=== PATIENT | female | born 1935 | race Caucasian/White ===

== ENCOUNTER 2024-07-16 13:55 | Inpatient (IN) | payer MEDICARE ==
[~2024-07-16] VITALS: Ht 157.5 cm; Wt 61.2 kg
[~2024-07-16 13:55] MED LIST: ESCI5TAB16 PO; METO-396 PO; SIMV-46 PO
[2024-07-16] MEDS ORDERED: DILTIAZEM HCL 125 MG in DEXT 5% WATER 100 ML IV ONE (14:15)
[2024-07-16] MEDS: DILTIAZEM HCL 5MG/ML 5ML VIAL IV PRN (14:21)
[2024-07-16 14:41] LABS: HEMATOCRIT. 36.3 % (36.0-48.0); HEMOGLOBIN. 11.2 g/dL (12.0-16.0); MEAN CORPUSCULAR HEMOGLOBIN 28.6 pg (28.0-32.0); MEAN CORPUSCULAR VOLUME 92.4 fL (81.0-99.0); MEAN PLATELET VOLUME 11.1 fl (7.4-10.4); PLATELET 142 x1000/uL (130-400); RED BLOOD CELL COUNT 3.93 mill/uL (4.2-5.4); RED CELL DISTRIBUTION WIDTH 16.3 % (11.6-14.6); WHITE BLOOD COUNT 6.6 x1000/uL (4.5-11.0)
[2024-07-16 14:43] LABS: DIFFERENTIAL COMMENT 1
[2024-07-16 14:47] LABS: CHLORIDE 98 mEq/L (98-107); POTASSIUM 4.9 mEq/L (3.5-5.1); SODIUM 127 mEq/L (136-145)
[2024-07-16 14:48] LABS: CARBON DIOXIDE 20 mEq/L (21-32)
[2024-07-16 14:49] LABS: CALCIUM 9.4 mg/dL (8.7-10.4)
[2024-07-16 14:50] LABS: INR 1.3
[2024-07-16 14:53] LABS: CREATININE 0.8 mg/dL (0.6-1.0); GLUCOSE 122 mg/dL (70-105); UREA NITROGEN BLOOD 13 mg/dL (9-23)
[2024-07-16 14:54] LABS: TROPONIN I HIGH SENSITIVITY 8 ng/L (3.0-34)
[2024-07-16 15:26] LABS: ANISOCYTOSIS 1+; PLATELET ESTIMATE NORMAL
[2024-07-16] MEDS: DILTIAZEM HCL 125 MG in DEXT 5% WATER 100 ML IV ONE (15:54)
[2024-07-16 19:15] LABS: TROPONIN I HIGH SENSITIVITY 8 ng/L (3.0-34)
[2024-07-16 23:00] VITALS: BP 119/82; PULSE 93; RESP 20; TEMP 36.3068
[2024-07-16] MEDS ORDERED: NALOXONE HCL 0.4MG/ML VIAL IV PRN (23:45)
[2024-07-17] VITALS (12 sets, daily range): BP systolic 98–142; BP diastolic 71–124; PULSE 88–121; RESP 11–35; TEMP 36.22512–36.61404; O2SAT 95–98
[2024-07-17] MEDS: DILTIAZEM HCL 60MG TABLET PO NR (00:35)
[2024-07-17] MEDS: DEXT 5%/0.45% NACL 1000ML 1,000 ML IV SCH (00:35)
[2024-07-17] MEDS: DILTIAZEM HCL 60MG TABLET PO SCH (05:07)
[2024-07-17] MEDS: ENOXAPARIN 80MG/0.8ML SYR SUBCUT SCH (05:34)
[2024-07-17] MEDS: PANTOPRAZOLE 40MG DR TABLET PO SCH (07:55)
[2024-07-17] MEDS: DIGOXIN 500MCG/2ML AMP IV NR (15:03)
[2024-07-17] MEDS: SODIUM CHLORIDE 0.45% 250 ML IV ONE (15:04)
[2024-07-17] MEDS: REGADENOSON 0.4 MG/5 ML IV NR (15:15)
[2024-07-17] MEDS: DILTIAZEM HCL 90MG TABLET PO SCH (17:32)
[2024-07-17 17:39] LABS: HEMOGLOBIN 11.1 g/dL (12.0-16.0); MEAN CORPUSCULAR HEMOGLOBIN 29.2 pg (28.0-32.0); MEAN CORPUSCULAR HGB CONC 32.6 g/dL (31.0-37.0); MEAN CORPUSCULAR VOLUME 89.5 fL (81.0-99.0); PLATELET 161 x1000/uL (130-400); RED CELL DISTRIBUTION WIDTH 16.3 % (11.6-14.6); WHITE BLOOD COUNT 8.5 x1000/uL (4.5-11.0)
[2024-07-17 17:52] LABS: CHLORIDE 98 mEq/L (98-107); POTASSIUM 3.7 mEq/L (3.5-5.1); SODIUM 130 mEq/L (136-145)
[2024-07-17 17:53] LABS: CALCIUM 9.5 mg/dL (8.7-10.4); CARBON DIOXIDE 28 mEq/L (21-32)
[2024-07-17 17:58] LABS: CREATININE 0.8 mg/dL (0.6-1.0); GLUCOSE 132 mg/dL (70-105); TRIGLYCERIDE 70 mg/dL (0-150); UREA NITROGEN BLOOD 10 mg/dL (9-23)
[2024-07-17 17:59] LABS: LDL CHOLESTEROL 39 mg/dL (5-100)
[2024-07-17 18:00] LABS: CHOLESTEROL 68 mg/dL (<200); HDL CHOLESTEROL < 20 mg/dL (>65)
[2024-07-17 18:03] LABS: THYROID STIMULATING HORMONE 0.86 uIU/mL (0.55-4.78)
[2024-07-18] VITALS (12 sets, daily range): BP systolic 121–169; BP diastolic 77–113; PULSE 90–131; RESP 12–26; TEMP 36.44736–37.05852; O2SAT 94–97
[2024-07-18] MEDS: DILTIAZEM HCL 5MG/ML 5ML VIAL IV PRN (02:57)
[2024-07-18] MEDS: MORPHINE SULFATE 2 MG/ML INJ (NOT FOR IM USE) IV PRN (03:43)
[2024-07-18] MEDS ORDERED: CAFFEINE CITRATE 20MG/ML 3ML VIAL IV ONE (08:41)
[2024-07-18] MEDS: DIGOXIN 500MCG/2ML AMP IV NR (12:37)
[2024-07-18] MEDS: SODIUM CHLORIDE 0.9% 1000ML BAG (SEPSIS BOLUS) IV NR (12:38)
[2024-07-18] MEDS ORDERED: AMIODARONE HCL 50MG/ML 3ML VIAL IV ONE (13:45)
[2024-07-18] MEDS: AMIODARONE 150MG/100ML 100 ML IV NR (15:42)
[2024-07-18 16:32] LABS: HEMATOCRIT. 38.8 % (36.0-48.0); HEMOGLOBIN. 12.6 g/dL (12.0-16.0); MEAN CORPUSCULAR HGB CONC 32.5 g/dL (31.0-37.0); MEAN PLATELET VOLUME 9.9 fl (7.4-10.4); PLATELET 160 x1000/uL (130-400); RED BLOOD CELL COUNT 4.36 mill/uL (4.2-5.4); RED CELL DISTRIBUTION WIDTH 16.1 % (11.6-14.6); WHITE BLOOD COUNT 9.6 x1000/uL (4.5-11.0)
[2024-07-18 16:38] LABS: DIFFERENTIAL COMMENT 1
[2024-07-18 16:41] LABS: CARBON DIOXIDE 29 mEq/L (21-32); CHLORIDE 96 mEq/L (98-107); POTASSIUM 3.3 mEq/L (3.5-5.1); SODIUM 131 mEq/L (136-145)
[2024-07-18 16:43] LABS: CALCIUM 9.6 mg/dL (8.7-10.4)
[2024-07-18 16:47] LABS: CREATININE 0.7 mg/dL (0.6-1.0); GLUCOSE 121 mg/dL (70-105)
[2024-07-18 16:50] LABS: UREA NITROGEN BLOOD < 5 mg/dL (9-23)
[2024-07-18] MEDS: DILTIAZEM HCL 30MG TABLET PO SCH (17:32)
[2024-07-18] MEDS: DIGOXIN 500MCG/2ML AMP IV SCH (17:32)
[2024-07-18] MEDS: AMIODARONE HCL 900 MG in DEXT 5% WATER 482 ML IV SCH (17:43)
[2024-07-18 19:19] LABS: PLATELET ESTIMATE NORMAL
[2024-07-18] MEDS: POTASSIUM CHLORIDE 20MEQ TABLET SR PO NR (20:49)
[2024-07-19] VITALS (13 sets, daily range): BP systolic 126–161; BP diastolic 70–115; PULSE 95–129; RESP 12–32; TEMP 36.114–37.05852; O2SAT 95–98
[2024-07-19] MEDS: KCL 20MEQ/100ML PREMIX 100 ML IV NR (01:59)
[2024-07-19 05:54] LABS: CALCIUM 9.3 mg/dL (8.7-10.4); CHLORIDE 95 mEq/L (98-107); POTASSIUM 3.3 mEq/L (3.5-5.1); SODIUM 130 mEq/L (136-145)
[2024-07-19 05:55] LABS: CARBON DIOXIDE 30 mEq/L (21-32)
[2024-07-19 06:00] LABS: CREATININE 0.7 mg/dL (0.6-1.0); GLUCOSE 115 mg/dL (70-105)
[2024-07-19 06:13] LABS: UREA NITROGEN BLOOD < 5 mg/dL (9-23)
[2024-07-19 06:18] LABS: HEMATOCRIT. 38.8 % (36.0-48.0); HEMOGLOBIN. 12.5 g/dL (12.0-16.0); MEAN CORPUSCULAR HEMOGLOBIN 28.2 pg (28.0-32.0); MEAN CORPUSCULAR HGB CONC 32.2 g/dL (31.0-37.0); MEAN CORPUSCULAR VOLUME 87.5 fL (81.0-99.0); MEAN PLATELET VOLUME 9.4 fl (7.4-10.4); PLATELET 172 x1000/uL (130-400); RED BLOOD CELL COUNT 4.44 mill/uL (4.2-5.4); RED CELL DISTRIBUTION WIDTH 16.4 % (11.6-14.6); WHITE BLOOD COUNT 10.7 x1000/uL (4.5-11.0)
[2024-07-19 06:37] LABS: DIFFERENTIAL COMMENT 1
[2024-07-19] MEDS ORDERED: POLYMYXIN B SULFATE 500000 UNITS/VIAL ONE (08:10)
[2024-07-19] MEDS ORDERED: LIDOCAINE HCL/EPINEPHRINE 1%-EPI 1:100,000 20ML VIAL ONE (08:11)
[2024-07-19] MEDS ORDERED: BACITRACIN 14GM TUBE TOP ONE (08:11)
[2024-07-19] MEDS ORDERED: BUPIVACAINE HCL/PF 0.5% (5MG/ML) 10ML ONE (08:11)
[2024-07-19] MEDS ORDERED: ETOMIDATE 2MG/ML 10ML VIAL IV ONE (11:32)
[2024-07-19] MEDS ORDERED: DEXAMETHASONE 4MG/ML 1ML VIAL ONE (11:32)
[2024-07-19] MEDS ORDERED: SUCCINYLCHOLINE CHLORIDE 200MG/10ML IV ONE (11:32)
[2024-07-19] MEDS ORDERED: FENTANYL CITRATE/PF 50MCG/ML 5ML VIAL ONE (11:33)
[2024-07-19] MEDS ORDERED: MIDAZOLAM HCL 2 MG/2 ML VIAL ONE (11:34)
[2024-07-19] MEDS ORDERED: VERAPAMIL HCL 2.5 MG/1 ML 2ML VIAL IV ONE (11:50)
[2024-07-19] MEDS ORDERED: HYDROCODONE/ACETAMINOPHEN 5/325MG TABLET PO PRN ×2 (12:00)
[2024-07-19] MEDS ORDERED: HYDROMORPHONE HCL/PF 2MG/ML INJ IV PRN (12:00)
[2024-07-19] MEDS ORDERED: ONDANSETRON HCL 4MG/2ML INJ IV PRN (12:00)
[2024-07-19] MEDS ORDERED: CEFAZOLIN 1000MG PREMIX 50 ML IV SCH (12:00)
[2024-07-19] MEDS: SODIUM CHLORIDE 0.45% 250 ML IV ONE (12:35)
[2024-07-19] MEDS: DIGOXIN 500MCG/2ML AMP IV SCH (12:46)
[2024-07-19] MEDS: DILTIAZEM HCL 30MG TABLET PO SCH (15:06)
[2024-07-19] MEDS: KCL 20MEQ/100ML PREMIX 100 ML IV SCH (18:38)
[2024-07-19 22:04] LABS: PLATELET ESTIMATE NORMAL
[2024-07-20] VITALS (12 sets, daily range): BP systolic 107–168; BP diastolic 69–128; PULSE 88–120; RESP 14–29; TEMP 36.114–36.78072; O2SAT 96–99
[2024-07-20 06:10] LABS: CALCIUM 9.5 mg/dL (8.7-10.4); CARBON DIOXIDE 30 mEq/L (21-32); CHLORIDE 95 mEq/L (98-107); POTASSIUM 3.9 mEq/L (3.5-5.1); SODIUM 129 mEq/L (136-145)
[2024-07-20 06:15] LABS: CREATININE 0.6 mg/dL (0.6-1.0)
[2024-07-20 06:16] LABS: GLUCOSE 126 mg/dL (70-105); UREA NITROGEN BLOOD 5 mg/dL (9-23)
[2024-07-20 06:18] LABS: DIGOXIN 0.9 ng/mL (0.8-2.0)
[2024-07-20 06:33] LABS: HEMATOCRIT 39.8 % (36.0-48.0); HEMOGLOBIN 12.3 g/dL (12.0-16.0); MEAN CORPUSCULAR HEMOGLOBIN 27.5 pg (28.0-32.0); MEAN CORPUSCULAR HGB CONC 30.9 g/dL (31.0-37.0); MEAN CORPUSCULAR VOLUME 88.9 fL (81.0-99.0); PLATELET 162 x1000/uL (130-400); RED BLOOD CELL COUNT 4.48 mill/uL (4.2-5.4); WHITE BLOOD COUNT 13.3 x1000/uL (4.5-11.0)
[2024-07-20] MEDS ORDERED: ENOXAPARIN 40MG/0.4ML SYR SUBCUT SCH (09:00)
[2024-07-20] MEDS: VANCOMYCIN 1.25GM/250ML 250 ML IV SCH (10:45)
[2024-07-20] MEDS: PIPERACILLIN/TAZO 3.375G/50ML 50 ML IV SCH (10:45)
[2024-07-20] MEDS: DIGOXIN 500MCG/2ML AMP IV NR (10:47)
[2024-07-20] MEDS: DIGOXIN 500MCG/2ML AMP IV SCH (18:30)
[2024-07-20 23:05] LABS: CLARITY URINE CLOUDY (CLEAR); COLOR URINE YELLOW (YELLOW); GLUCOSE URINE NEGATIVE (NEGATIVE); KETONES URINE NEGATIVE (NEGATIVE); LEUKOCYTE ESTERASE URINE 3+ (NEGATIVE); NITRITE URINE POSITIVE (NEGATIVE); OCCULT BLOOD URINE 1+ (NEGATIVE); PH URINE 8.5 (4.5-8.0); PROTEIN URINE 1+ (NEGATIVE); SPECIFIC GRAVITY URINE 1.013 (1.005-1.030)
[2024-07-20 23:29] LABS: BACTERIA URINE 3+; SQUAMOUS EPITHELIAL CELL URINE 1+ /lpf (RARE/1+)
[2024-07-20 23:30] LABS: WBC URINE TNTC /hpf (0-2)
[2024-07-21] VITALS (12 sets, daily range): BP systolic 123–152; BP diastolic 64–102; PULSE 74–110; RESP 14–26; TEMP 36.00288–37.28076; O2SAT 92–98
[2024-07-21] MEDS: DILTIAZEM HCL 90MG TABLET PO SCH (00:06)
[2024-07-21 07:17] LABS: HEMATOCRIT 37.1 % (36.0-48.0); HEMOGLOBIN 11.7 g/dL (12.0-16.0); MEAN CORPUSCULAR HEMOGLOBIN 27.7 pg (28.0-32.0); MEAN CORPUSCULAR HGB CONC 31.6 g/dL (31.0-37.0); MEAN CORPUSCULAR VOLUME 87.8 fL (81.0-99.0); PLATELET 151 x1000/uL (130-400); RED BLOOD CELL COUNT 4.22 mill/uL (4.2-5.4); WHITE BLOOD COUNT 16.2 x1000/uL (4.5-11.0)
[2024-07-21 07:22] LABS: CHLORIDE 92 mEq/L (98-107); POTASSIUM 3.3 mEq/L (3.5-5.1); SODIUM 126 mEq/L (136-145)
[2024-07-21 07:23] LABS: CARBON DIOXIDE 29 mEq/L (21-32)
[2024-07-21 07:24] LABS: CALCIUM 9.4 mg/dL (8.7-10.4)
[2024-07-21 07:28] LABS: CREATININE 0.5 mg/dL (0.6-1.0); GLUCOSE 124 mg/dL (70-105)
[2024-07-21 07:38] LABS: UREA NITROGEN BLOOD < 5 mg/dL (9-23)
[2024-07-21] MEDS ORDERED: VANCOMYCIN HCL 1GM VIAL ONE (08:20)
[2024-07-21] MEDS ORDERED: LIDOCAINE HCL/EPINEPHRINE 1%-EPI 1:100,000 20ML VIAL ONE (08:20)
[2024-07-21] MEDS ORDERED: POLYMYXIN B SULFATE 500000 UNITS/VIAL ONE (08:20)
[2024-07-21] MEDS ORDERED: BACITRACIN 14GM TUBE TOP ONE (08:20)
[2024-07-21] MEDS: VANCOMYCIN 750MG/150ML (BAXTER) IV SCH (08:52)
[2024-07-21] MEDS ORDERED: SODIUM CHLORIDE 3% 500ML IV SOLN IV ONE (15:45)
[2024-07-21 19:00] LABS: CHLORIDE 93 mEq/L (98-107); POTASSIUM 3.4 mEq/L (3.5-5.1); SODIUM 126 mEq/L (136-145)
[2024-07-21 19:01] LABS: CARBON DIOXIDE 30 mEq/L (21-32)
[2024-07-21 19:02] LABS: CALCIUM 9.9 mg/dL (8.7-10.4)
[2024-07-21 19:06] LABS: CREATININE 0.6 mg/dL (0.6-1.0); GLUCOSE 124 mg/dL (70-105); UREA NITROGEN BLOOD 5 mg/dL (9-23)
[2024-07-21 19:11] LABS: T4 FREE 1.62 ng/dL (0.89-1.76); THYROID STIMULATING HORMONE 1.27 uIU/mL (0.55-4.78)
[2024-07-21] MEDS: SODIUM CHLORIDE 3% 250 ML IV NR (19:11)
[2024-07-21] MEDS: KCL 10MEQ/50ML PREMIX 50 ML IV ONE (22:30)
[2024-07-22] VITALS (13 sets, daily range): BP systolic 102–162; BP diastolic 62–104; PULSE 65–98; RESP 17–33; TEMP 36.33624–36.78072; O2SAT 89–100
[2024-07-22 06:58] LABS: CARBON DIOXIDE 27 mEq/L (21-32); CHLORIDE 96 mEq/L (98-107); POTASSIUM 3.4 mEq/L (3.5-5.1); SODIUM 129 mEq/L (136-145)
[2024-07-22 06:59] LABS: CALCIUM 9.7 mg/dL (8.7-10.4)
[2024-07-22 07:03] LABS: CREATININE 0.6 mg/dL (0.6-1.0)
[2024-07-22 07:04] LABS: GLUCOSE 124 mg/dL (70-105); UREA NITROGEN BLOOD 6 mg/dL (9-23)
[2024-07-22 07:25] LABS: HEMATOCRIT 40.9 % (36.0-48.0); HEMOGLOBIN 12.8 g/dL (12.0-16.0); MEAN CORPUSCULAR HEMOGLOBIN 27.6 pg (28.0-32.0); MEAN CORPUSCULAR HGB CONC 31.3 g/dL (31.0-37.0); MEAN CORPUSCULAR VOLUME 88.4 fL (81.0-99.0); PLATELET 155 x1000/uL (130-400); RED BLOOD CELL COUNT 4.63 mill/uL (4.2-5.4); RED CELL DISTRIBUTION WIDTH 16.5 % (11.6-14.6); WHITE BLOOD COUNT 13.7 x1000/uL (4.5-11.0)
[2024-07-22] MEDS: DEXTROSE 5% WATER 1,000 ML IV SCH (11:04)
[2024-07-22] MEDS: KCL 20MEQ/100ML PREMIX 100 ML IV SCH (15:02)
[2024-07-22] MEDS ORDERED: LIDOCAINE HCL/EPINEPHRINE 1%-EPI 1:100,000 20ML VIAL ONE (15:10)
[2024-07-22] MEDS ORDERED: SKIN ADHESIVE 0.7 GM EA TOP ONE (15:10)
[2024-07-22] MEDS ORDERED: VANCOMYCIN HCL 1GM VIAL ONE (15:10)
[2024-07-22] MEDS ORDERED: POLYMYXIN B SULFATE 500000 UNITS/VIAL ONE (15:10)
[2024-07-22] MEDS: AMIODARONE HCL 900 MG in DEXT 5% WATER 482 ML IV SCH (15:37)
[2024-07-22] MEDS ORDERED: PHENYLEPHRINE 50MG/250ML PMX 250 ML IV ONE (15:54)
[2024-07-22] MEDS ORDERED: ETOMIDATE 2MG/ML 10ML VIAL IV ONE (16:11)
[2024-07-22] MEDS ORDERED: SUCCINYLCHOLINE CHLORIDE 200MG/10ML IV ONE (16:11)
[2024-07-22] MEDS ORDERED: HYDROMORPHONE HCL/PF 1MG/ML INJ ONE (16:11)
[2024-07-22] MEDS ORDERED: ROCURONIUM BROMIDE 10MG/ML VIAL 5ML IV ONE (16:11)
[2024-07-22] MEDS ORDERED: ONDANSETRON HCL 4MG/2ML INJ IV PRN ×2 (16:30→18:15)
[2024-07-22] MEDS: CEFAZOLIN 1000MG PREMIX 50 ML IV SCH ×2 (16:30→21:56)
[2024-07-22] MEDS ORDERED: SUGAMMADEX SODIUM 200MG/2ML VIAL IV ONE (17:42)
[2024-07-22] MEDS: METOPROLOL TARTRATE 5MG/5ML VIAL IV NR ×2 (18:10→18:15)
[2024-07-22] MEDS ORDERED: LABETALOL 5MG/ML 4ML INJ IV PRN (18:15)
[2024-07-22] MEDS ORDERED: GLYCOPYRROLATE 0.2MG/ML VIAL 5ML IV PRN (18:15)
[2024-07-22] MEDS ORDERED: HYDRALAZINE 20MG/ML VIAL IV PRN (18:15)
[2024-07-22] MEDS ORDERED: HYDROMORPHONE HCL/PF 1MG/ML INJ IV PRN ×3 (18:15)
[2024-07-22 18:53] LABS: CLARITY URINE TURBID (CLEAR); COLOR URINE YELLOW (YELLOW); GLUCOSE URINE NEGATIVE (NEGATIVE); KETONES URINE NEGATIVE (NEGATIVE); LEUKOCYTE ESTERASE URINE 3+ (NEGATIVE); NITRITE URINE NEGATIVE (NEGATIVE); OCCULT BLOOD URINE 2+ (NEGATIVE); PH URINE 7.5 (4.5-8.0); PROTEIN URINE 2+ (NEGATIVE); SPECIFIC GRAVITY URINE 1.012 (1.005-1.030)
[2024-07-22 19:19] LABS: BACTERIA URINE 2+; SQUAMOUS EPITHELIAL CELL URINE FEW /lpf (RARE/1+); WBC URINE TNTC /hpf (0-2)
[2024-07-22] MEDS ORDERED: NALOXONE HCL 0.4MG/ML VIAL IV PRN (20:30)
[2024-07-22] MEDS: VANCOMYCIN 500MG PREMIX 100 ML IV SCH (21:55)
[2024-07-23] VITALS (12 sets, daily range): BP systolic 79–122; BP diastolic 38–86; PULSE 72–125; RESP 18–31; TEMP 36.33624–37.11408; O2SAT 93–98
[2024-07-23 05:48] LABS: HEMATOCRIT. 37.2 % (36.0-48.0); HEMOGLOBIN. 11.6 g/dL (12.0-16.0); MEAN CORPUSCULAR HEMOGLOBIN 27.9 pg (28.0-32.0); MEAN CORPUSCULAR HGB CONC 31.2 g/dL (31.0-37.0); MEAN CORPUSCULAR VOLUME 89.5 fL (81.0-99.0); MEAN PLATELET VOLUME 9.8 fl (7.4-10.4); PLATELET 119 x1000/uL (130-400); RED BLOOD CELL COUNT 4.16 mill/uL (4.2-5.4); RED CELL DISTRIBUTION WIDTH 16.1 % (11.6-14.6); WHITE BLOOD COUNT 28.6 x1000/uL (4.5-11.0)
[2024-07-23 06:58] LABS: DIFFERENTIAL COMMENT 1
[2024-07-23] MEDS: ENOXAPARIN 40MG/0.4ML SYR SUBCUT SCH (09:26)
[2024-07-23] MEDS: FAMOTIDINE 20MG TABLET PO SCH (09:26)
[2024-07-23 16:00] LABS: PLATELET ESTIMATE NORMAL
[2024-07-23] MEDS: AMIODARONE 200MG TABLET PO SCH (16:27)
[2024-07-23] MEDS ORDERED: MEROPENEM 500MG/50ML 50 ML IV SCH (17:45)
[2024-07-23] MEDS: MEROPENEM 1G/100ML IV SCH (20:19)
[2024-07-23 20:40] LABS: CHLORIDE 93 mEq/L (98-107); POTASSIUM 3.6 mEq/L (3.5-5.1)
[2024-07-23 20:41] LABS: CARBON DIOXIDE 24 mEq/L (21-32)
[2024-07-23 20:42] LABS: CALCIUM 8.8 mg/dL (8.7-10.4); SODIUM 121 mEq/L (136-145)
[2024-07-23 20:46] LABS: CREATININE 0.8 mg/dL (0.6-1.0); GLUCOSE 117 mg/dL (70-105); UREA NITROGEN BLOOD 11 mg/dL (9-23)
[2024-07-24] VITALS (12 sets, daily range): BP systolic 86–129; BP diastolic 49–69; PULSE 73–112; RESP 15–28; TEMP 36.28068–37.00296; O2SAT 97–99
[2024-07-24 11:27] LABS: MEAN CORPUSCULAR HEMOGLOBIN 27.7 pg (28.0-32.0); MEAN CORPUSCULAR VOLUME 86.7 fL (81.0-99.0); MEAN PLATELET VOLUME 9.7 fl (7.4-10.4); PLATELET 112 x1000/uL (130-400); RED BLOOD CELL COUNT 3.24 mill/uL (4.2-5.4); WHITE BLOOD COUNT 26.6 x1000/uL (4.5-11.0)
[2024-07-24 11:51] LABS: DIFFERENTIAL COMMENT 1
[2024-07-24 11:55] LABS: HEMATOCRIT. 28.1 % (36.0-48.0)
[2024-07-24] MEDS ORDERED: AMIODARONE HCL 900 MG in DEXT 5% WATER 482 ML IV SCH (12:30)
[2024-07-24] MEDS: SODIUM CHLORIDE 3% 250 ML IV ONE (13:07)
[2024-07-24 14:42] LABS: PLATELET ESTIMATE NORMAL
[2024-07-24] MEDS: MEROPENEM 1G/100ML IV SCH (20:32)
[2024-07-25] VITALS (12 sets, daily range): BP systolic 96–134; BP diastolic 45–84; PULSE 79–111; RESP 14–26; TEMP 36.28068–37.16964; O2SAT 95–100
[2024-07-25 00:42] LABS: CHLORIDE 93 mEq/L (98-107); POTASSIUM 3.6 mEq/L (3.5-5.1)
[2024-07-25 00:43] LABS: CARBON DIOXIDE 23 mEq/L (21-32)
[2024-07-25 00:44] LABS: CALCIUM 8.9 mg/dL (8.7-10.4)
[2024-07-25 00:49] LABS: GLUCOSE 113 mg/dL (70-105); UREA NITROGEN BLOOD 8 mg/dL (9-23)
[2024-07-25 01:19] LABS: CREATININE 0.5 mg/dL (0.6-1.0)
[2024-07-25 01:20] LABS: SODIUM 120 mEq/L (136-145)
[2024-07-25 07:23] LABS: HEMATOCRIT. 28.6 % (36.0-48.0); HEMOGLOBIN. 9.1 g/dL (12.0-16.0); MEAN CORPUSCULAR HEMOGLOBIN 27.8 pg (28.0-32.0); MEAN CORPUSCULAR HGB CONC 31.8 g/dL (31.0-37.0); MEAN CORPUSCULAR VOLUME 87.5 fL (81.0-99.0); MEAN PLATELET VOLUME 9.9 fl (7.4-10.4); PLATELET 112 x1000/uL (130-400); RED BLOOD CELL COUNT 3.27 mill/uL (4.2-5.4); RED CELL DISTRIBUTION WIDTH 16.3 % (11.6-14.6); WHITE BLOOD COUNT 15.4 x1000/uL (4.5-11.0)
[2024-07-25 07:29] LABS: CARBON DIOXIDE 23 mEq/L (21-32); CHLORIDE 94 mEq/L (98-107); POTASSIUM 4.8 mEq/L (3.5-5.1); SODIUM 122 mEq/L (136-145)
[2024-07-25 07:30] LABS: CALCIUM 8.3 mg/dL (8.7-10.4)
[2024-07-25 07:35] LABS: CREATININE 0.5 mg/dL (0.6-1.0); GLUCOSE 102 mg/dL (70-105); UREA NITROGEN BLOOD 7 mg/dL (9-23)
[2024-07-25 07:45] LABS: DIFFERENTIAL COMMENT 1
[2024-07-25] MEDS ORDERED: AMIODARONE 200MG TABLET PO SCH (09:00)
[2024-07-25] MEDS: AMIODARONE 200MG TABLET PO SCH (09:40)
[2024-07-25] MEDS: HYDROMORPHONE HCL/PF 1MG/ML INJ IV PRN (10:01)
[2024-07-25 11:46] LABS: ANISOCYTOSIS 1+; PLATELET ESTIMATE SLIGHTLY DECREASED
[2024-07-25] MEDS: ENOXAPARIN 80MG/0.8ML SYR SUBCUT SCH (15:42)
[2024-07-25] MEDS: SODIUM CHLORIDE 3% IV NR (16:30)
[2024-07-26] VITALS (13 sets, daily range): BP systolic 104–147; BP diastolic 59–96; PULSE 91–122; RESP 14–35; TEMP 36.16956–36.89184; O2SAT 84–99
[2024-07-26] MEDS ORDERED: LIDOCAINE HCL 1% 10 MG/ML 10ML VIAL ONE (08:29)
[2024-07-26] MEDS: HYDROCODONE/ACETAMINOPHEN 5/325MG TABLET PO PRN (09:22)
[2024-07-26 13:41] LABS: HEMATOCRIT. 26.1 % (36.0-48.0); HEMOGLOBIN. 8.6 g/dL (12.0-16.0); MEAN CORPUSCULAR HEMOGLOBIN 28.4 pg (28.0-32.0); MEAN CORPUSCULAR HGB CONC 32.8 g/dL (31.0-37.0); MEAN CORPUSCULAR VOLUME 86.5 fL (81.0-99.0); MEAN PLATELET VOLUME 9.8 fl (7.4-10.4); PLATELET 104 x1000/uL (130-400); RED BLOOD CELL COUNT 3.02 mill/uL (4.2-5.4); WHITE BLOOD COUNT 8.7 x1000/uL (4.5-11.0)
[2024-07-26 13:48] LABS: DIFFERENTIAL COMMENT 1
[2024-07-26 14:00] LABS: CARBON DIOXIDE 27 mEq/L (21-32); CHLORIDE 98 mEq/L (98-107); POTASSIUM 3.9 mEq/L (3.5-5.1); SODIUM 129 mEq/L (136-145)
[2024-07-26 14:01] LABS: CALCIUM 9.4 mg/dL (8.7-10.4)
[2024-07-26 14:06] LABS: CREATININE 0.4 mg/dL (0.6-1.0); GLUCOSE 89 mg/dL (70-105); UREA NITROGEN BLOOD 8 mg/dL (9-23)
[2024-07-26] MEDS: DILTIAZEM HCL 30MG TABLET PO SCH (15:18)
[2024-07-26 20:27] LABS: ANISOCYTOSIS 1+; PLATELET ESTIMATE SLIGHTLY DECREASED
[2024-07-26 20:28] LABS: HYPOCHROMASIA 1+
[2024-07-27] VITALS (12 sets, daily range): BP systolic 76–142; BP diastolic 55–86; PULSE 97–119; RESP 12–26; TEMP 36.33624–36.6696; O2SAT 95–97
[2024-07-27] MEDS: HYDROCODONE/ACETAMINOPHEN 5/325MG TABLET PO PRN (09:39)
[2024-07-27 11:05] LABS: HEMOGLOBIN. 8.4 g/dL (12.0-16.0); MEAN CORPUSCULAR HEMOGLOBIN 27.8 pg (28.0-32.0); MEAN CORPUSCULAR HGB CONC 32.1 g/dL (31.0-37.0); MEAN CORPUSCULAR VOLUME 86.6 fL (81.0-99.0); MEAN PLATELET VOLUME 9.1 fl (7.4-10.4); PLATELET 97 x1000/uL (130-400); RED BLOOD CELL COUNT 3.01 mill/uL (4.2-5.4); RED CELL DISTRIBUTION WIDTH 15.7 % (11.6-14.6)
[2024-07-27 11:08] LABS: DIFFERENTIAL COMMENT 1
[2024-07-27 11:29] LABS: CARBON DIOXIDE 29 mEq/L (21-32); CHLORIDE 96 mEq/L (98-107); POTASSIUM 3.8 mEq/L (3.5-5.1); SODIUM 129 mEq/L (136-145)
[2024-07-27 11:30] LABS: CALCIUM 9.4 mg/dL (8.7-10.4)
[2024-07-27 11:35] LABS: CREATININE 0.5 mg/dL (0.6-1.0); GLUCOSE 110 mg/dL (70-105); UREA NITROGEN BLOOD 8 mg/dL (9-23)
[2024-07-27] MEDS: DILTIAZEM HCL 60MG TABLET PO SCH (12:00)
[2024-07-27] MEDS: DIGOXIN 500MCG/2ML AMP IV NR (14:30)
[2024-07-27 15:19] LABS: PLATELET ESTIMATE DECREASED
[2024-07-27] MEDS ORDERED: NALOXONE HCL 0.4MG/ML VIAL IV PRN (23:00)
[2024-07-28] VITALS (12 sets, daily range): BP systolic 90–127; BP diastolic 52–75; PULSE 70–122; RESP 13–22; TEMP 36.114–36.83628; O2SAT 95–98
[2024-07-28] MEDS: SODIUM CHLORIDE 0.9% 1,000 ML IV SCH (02:38)
[2024-07-28] MEDS: HYDROCODONE/ACETAMINOPHEN 7.5/325MG TABLET PO PRN (05:31)
[2024-07-28 06:40] LABS: HEMATOCRIT 25.3 % (36.0-48.0); HEMOGLOBIN 7.8 g/dL (12.0-16.0); MEAN CORPUSCULAR HEMOGLOBIN 27.4 pg (28.0-32.0); MEAN CORPUSCULAR HGB CONC 30.9 g/dL (31.0-37.0); MEAN CORPUSCULAR VOLUME 88.6 fL (81.0-99.0); PLATELET 87 x1000/uL (130-400); RED BLOOD CELL COUNT 2.86 mill/uL (4.2-5.4); RED CELL DISTRIBUTION WIDTH 16.4 % (11.6-14.6); WHITE BLOOD COUNT 12.4 x1000/uL (4.5-11.0)
[2024-07-28 06:43] LABS: CHLORIDE 100 mEq/L (98-107); POTASSIUM 4.1 mEq/L (3.5-5.1); SODIUM 131 mEq/L (136-145)
[2024-07-28 06:44] LABS: CALCIUM 9.2 mg/dL (8.7-10.4); CARBON DIOXIDE 29 mEq/L (21-32)
[2024-07-28 06:49] LABS: CREATININE 0.4 mg/dL (0.6-1.0); GLUCOSE 84 mg/dL (70-105); UREA NITROGEN BLOOD 9 mg/dL (9-23)
[2024-07-29] VITALS (19 sets, daily range): BP systolic 97–141; BP diastolic 52–120; PULSE 92–143; RESP 15–24; TEMP 36.33624–37.16964; O2SAT 95–98
[2024-07-29 09:35] LABS: HEMATOCRIT 27.4 % (36.0-48.0)
[2024-07-29] MEDS: AMIODARONE 200MG TABLET PO SCH (12:48)
[2024-07-29] MEDS: DILTIAZEM HCL 90MG TABLET PO SCH (17:57)
[2024-07-29] MEDS: LORAZEPAM 1MG TABLET PO NR (17:57)
== END 2024-07-29 18:38 | DRG 522 ==
LOC: ER 13:55 → 5EST 15:13 → EDBEDREQ 15:16 → EDBEDREQTM 15:16 → EDBEDREQSVC 20:13
PROVIDERS: ADMIT Internal Medicine; ATTEND Internal Medicine
PROC: 0SRR0JZ Replacement of Right Hip Joint, Femoral Surface with Synthetic Substitute, Open Approach (ICD-10-PCS; principal; 2024-07-22)
PROC: 30233N1 Transfusion of Nonautologous Red Blood Cells into Peripheral Vein, Percutaneous Approach (ICD-10-PCS; 2024-07-29)
DX: S72.091A Other fracture of head and neck of right femur, initial encounter for closed fracture (principal); F03.93 Unspecified dementia, unspecified severity, with mood disturbance; E87.1 Hypo-osmolality and hyponatremia; I48.91 Unspecified atrial fibrillation; I50.9 Heart failure, unspecified; I11.0 Hypertensive heart disease with heart failure; Z20.822 Contact with and (suspected) exposure to COVID-19; E78.5 Hyperlipidemia, unspecified; D64.9 Anemia, unspecified; D72.829 Elevated white blood cell count, unspecified; E11.9 Type 2 diabetes mellitus without complications; I27.20 Pulmonary hypertension, unspecified; I70.0 Atherosclerosis of aorta; E87.6 Hypokalemia; X58.XXXA Exposure to other specified factors, initial encounter; Y93.89 Activity, other specified; Y99.8 Other external cause status; Y92.009 Unspecified place in unspecified non-institutional (private) residence as the place of occurrence of the external cause; E78.00 Pure hypercholesterolemia, unspecified
CPT/HCPCS: 36415; 71045; 72170; 73502; 78452; 80048; 80061; 80162; 80202; 81003; 82533; 82962; 83036; 83605; 83880; 84145; 84295; 84300; 84439; 84443; 84484; 85014; 85018; 85025; 85027; 85049; 86850; 86900; 86920; 87426; 88304; 88305; 88311; 93005; 93017; 93306; 93970; 97110; 97163; 97166; 97530; 99291; A9500; J0282; J0330; J0690; J0706; J1100; J1160; J1171; J1650; J2185; J2250; J2270; J2543; J2785; J3010; J3370; J3480; J3490; J7030; J7060; J7070; P9016; C1776